=== PATIENT | female | born 1960 | race Hispanic/Latino ===

== ENCOUNTER 2022-10-06 14:52 | Emergency (ER) | payer MEDICAID, SELFPAY ==
--- NOTE | ~2022-10-06 | XR_ITS ---
EXAMINATION: XR knee RT min 4V DATE: 10/06/2022 15:58 INDICATION: Right knee injury. TECHNIQUE: 4 views of right knee were obtained. COMPARISON: None. FINDINGS: There is a medial compartment arthroplasty in near-anatomic alignment. No periprosthetic jane cency to suggest loosening or infection. No fracture. There is mild osteoarthritis of lateral and pat ellofemoral compartments. There is a moderate-sized knee joint effusion. IMPRESSION: 1. Medial compartment arthroplasty in near-anatomic alignment. 2. 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 3. Moderate-sized knee joint effusion. Reviewed, dictated and finalized at location A. MAINTENANCE SUPERVISOR
--- NOTE | ~2022-10-06 | XR_ITS ---
EXAMINATION: XR ankle RT min 3V DATE: 10/06/2022 15:58 INDICATION: Right ankle injury. TECHNIQUE: 4 views of right ankle were obtained. COMPARISON: None. FINDINGS: Bone alignment is normal. No fracture. 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 Joint spaces are normal. There are enthesophytes at the posterior and plantar aspec ts of calcaneal tuberosity. There is ankle soft tissue swelling. IMPRESSION: 1. No fracture. Reviewed, dictated and finalized at location A. TRE INSTRUCTOR IMPRESSION: 1. No fracture.
--- NOTE | ~2022-10-06 | XR_ITS ---
XR humerus RT 10/06/2022 15:58 INDICATION: Right arm pain PROCEDURE: 2 views right humerus COMPARISON: No prior studies for comparison. FINDINGS: Fracture, dislocation or subluxation is not identified. There is a small loose body adjacen t to the humeral head, possibly calcific tendinopathy. There is mild osteoarthritis of the acromiocla vicular joint. The soft tissues appear within normal limits. No foreign bodies are identified. IMPRESSION: 1: NO ACUTE BONE OR JOINT ABNORMALITY IDENTIFIED. Reviewed, dictated and finalized at location A. ONAL ASSISTANT
[2022-10-06 15:02] VITALS: BP 147/70; PULSE 110; RESP 16; TEMP 36.3; O2SAT 98
[2022-10-06] MEDS: IBUPROFEN 600 MG TABLET PO (16:07)
--- NOTE | 2022-10-06 16:22 | ED.FALL ---
HPI - Fall General Chief Complaint: Fall Stated Complaint: fall Time Seen by Provider: 10/06/22 15:08 Source: RN notes reviewed History of Present Illness HPI Narrative: Patient presents emergency department from home for fall. Patient states that last night she was outside when she slipped on some ice and fell landing on her right side states she did not strike her head and had no loss of consciousness she states since that time she had pain in her right upper arm as well as in her right knee and her right ankle she states she has been able to get up and ambulate she denies any chest pain or shortness of breath denies any abdominal pain nausea or vomiting denies any numbness or tingling in the extremities states she did not take anything for pain to Review of Systems Review of Systems: Gen.: Denies fevers or chills Eyes: Denies eye pain or visual change ENT: Denies congestion Respiratory: Denies shortness of breath or cough CV: Denies chest pain or palpitations GI: Denies abdominal pain nausea, emesis Musculoskeletal: See HPI Neuro: Denies numbness, tingling, weakness or focal weakness Skin: Denies rash Except as documented, all other systems reviewed and negative [facility] Past Medical History Medical History (Updated 10/06/22 @ 16:26 by Abdi Anderson DO) Patient denies significant medical history Social History Social History (Updated 10/06/22 @ 16:23 by Abdi Anderson DO) Smoking status: Never smoker Exam Narrative: APPEARANCE: No acute distress, nontoxic, resting in bed EYES: EOMI PERRL HEENT: Normocephalic, atraumatic, TMs clear bilaterally, nares patent Neck: Supple no midline tenderness palpation full range of motion without pain RESPIRATORY: No respiratory distress Clear to auscultation bilaterally with no rhonchi wheezing or rales. CARDIOVASCULAR: Regular rate and rhythm without murmurs rubs or gallops. ABDOMINAL: Soft, nontender, nondistended, no rebound or guarding Back: No midline thoracic lumbar tenderness palpation MUSCULOSKELETAl: Moves all extremities. No clubbing, cyanosis or edema. Tender palpation over the right lateral humerus Ecchymosis pain with flexion abduction of the shoulder greater than 35 degrees no tenderness of the right elbow or wrist radial pulse 2+ neurovascular intact no tenderness of the left upper or lower extremities, no tenderness of the right hip, tender palpation of the right knee medial lateral and anterior knee mild swelling with no ecchymosis tender palpation of the right ankle with swelling over the lateral malleolus no tenderness of the medial malleolus dorsalis pedis pulse 2+ neurovascularly intact NEURO: Awake and alert x 4. Following commands, speech normal, no focal deficits SKIN:: Warm, dry. No rashes lesions or abrasions PSYCHIATRIC: Normal affect/mood, Course Course Emergency Course: Discussed with patient results of workup and diagnosis. Discussed need for follow-up with primary care, proper use of medication, and reasons to return to the emergency department. Patient understands and agrees to current treatment plan Vital Signs Vital signs: Vital Signs Temperature 97.4 F L 10/06/22 15:02 Pulse Rate 110 H 10/06/22 15:02 Respiratory Rate 16 10/06/22 15:02 Blood Pressure 147/70 H 10/06/22 15:02 Pulse Oximetry 98 10/06/22 15:02 Oxygen Delivery Room Air 10/06/22 15:02 Temperature 97.4 F L 10/06/22 15:02 Pulse Rate 110 H 10/06/22 15:02 Respiratory Rate 16 10/06/22 15:02 Blood Pressure 147/70 H 10/06/22 15:02 Pulse Oximetry 98 10/06/22 15:02 Oxygen Delivery Room Air 10/06/22 15:02 MDM - Fall MDM Narrative Medical decision making narrative: Patient?s injury is consistent with muscular skeletal etiology. No signs of neurologic or vascular compromise to exam. Compartments are soft without signs of compartment syndrome. Pain is consistent with exam and injury Imaging Data Radiologist's impression: ITS Impressions Bill
== END 2022-10-06 16:45 | disposition home or self-care (01) ==
PROVIDERS: Emergency Provider Emergency Medicine
DX: S80.01XA Contusion of right knee, initial encounter (principal); S40.011A Contusion of right shoulder, initial encounter; S93.401A Sprain of unspecified ligament of right ankle, initial encounter; M17.11 Unilateral primary osteoarthritis, right knee; Z96.651 Presence of right artificial knee joint; W00.0XXA Fall on same level due to ice and snow, initial encounter
CPT/HCPCS: 73060; 73564; 73610; 99284; A4565; A9270